=== PATIENT | male | born 1960 | race Caucasian/White ===

== ENCOUNTER 2017-07-02 09:50 | Day surgery (SDC) | payer BC ==
[2017-06-24 10:27] VITALS: BP 126/79
[~2017-07-02] VITALS: Ht 177.8 cm; Wt 77.1 kg
[~2017-07-02 09:50] MED LIST: None per Pt.
[2017-07-02] MEDS ORDERED: MIDAZOLAM 1 MG/ML, 2ML ONE (10:58)
[2017-07-02] MEDS ORDERED: FENTANYL PF 250 MCG/5ML ONE (10:58)
[2017-07-02 10:59] VITALS: BP 126/79
[2017-07-02] MEDS ORDERED: DEXAMETHASONE 4 MG/ML, 5ML ONE (12:09)
[2017-07-02] MEDS ORDERED: CEFAZOLIN 1,000 MG ONE (12:09)
[2017-07-02] MEDS ORDERED: ONDANSETRON 2MG/ML, 2ML ONE (12:09)
[2017-07-02] MEDS ORDERED: HYDROcodone/APAP 7.5-325MG/15ML UDC PO PRN (12:30)
[2017-07-02] MEDS ORDERED: ONDANSETRON 2MG/ML, 2ML IVPush PRN (12:30)
[2017-07-02] MEDS ORDERED: OXYcodone 5 MG/5 ML ORAL.SOL UDC PO PRN (12:30)
[2017-07-02] MEDS ORDERED: ACETAMINOPHEN 325 MG TABLET PO PRN (12:30)
[2017-07-02] MEDS ORDERED: HYDROmorphone 1 MG/ML, 1ML IV PRN (12:30)
[2017-07-02] MEDS ORDERED: FENTANYL PF 100 MCG/2ML IV PRN (12:30)
[2017-07-02] MEDS ORDERED: PROPOFOL 10 MG/ML, 20ML ONE (12:45)
[2017-07-02] MEDS ORDERED: BUPIVACAINE/PF 0.25% ONE (12:45)
[2017-07-02] MEDS ORDERED: OXYcodone 5 MG/5 ML ORAL.SOL UDC ONE (13:35)
[2017-07-02] MEDS ORDERED: ACETAMINOPHEN 650 MG/20.3 ML UDC ONE (13:35)
== END 2017-07-02 15:50 ==
LOC: OUT 09:50
PROVIDERS: ATTEND Orthopaedic Surgery
DX: M21.621 Bunionette of right foot (principal)
CPT/HCPCS: 28110; C1713; J0690; J1100; J2250; J2405; J2704; J3010; J3490